=== PATIENT | male | born 1995 | race Caucasian/White ===

== ENCOUNTER 2019-02-26 15:27 | Emergency (ER) | payer OTHER ==
[~2019-02-26] VITALS: Ht 185.4 cm; Wt 115.0 kg
[2019-02-26 15:29] VITALS: BP 160/92
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
--- NOTE | 2019-02-26 15:53 | NUR ---
PT TO RADIOLOGY.
--- NOTE | 2019-02-26 16:42 | NUR ---
Patient/Caregiver given discharge instructions and they have confirmed that they understand the instructions. Patient ambulatory with steady gait.
== END 2019-02-26 16:54 | disposition home or self-care (01) ==
LOC: ED 16:45
DX: S16.1XXA Strain of muscle, fascia and tendon at neck level, initial encounter (principal); V89.2XXA Person injured in unspecified motor-vehicle accident, traffic, initial encounter; Y93.89 Activity, other specified; Y92.89 Other specified places as the place of occurrence of the external cause; Y99.8 Other external cause status
CPT/HCPCS: 72020; 72050; 99283